=== PATIENT | female | born 1975 | race Caucasian/White ===

== ENCOUNTER 2020-11-14 01:10 | Emergency (ER) | payer OTHER ==
[2020-11-14 02:16] LABS: BASOPHIL 0.5 % (0-2); EOSINOPHIL 0.9 % (0-5); HCT 36.1 % (37.0-47.0); HGB 11.8 g/dl (12.5-16.0); LYMPHOCYTE 37.6 % (15-48); MCH 28.2 pg (25.0-31.0); MCHC 32.7 g/dL (32.0-36.0); MCV 86.4 fL (78.0-100.0); MONOCYTE 9.6 % (0-12); MPV 10.4 fL (6.0-9.5); NEUTROPHIL 51.1 % (41-80); NRBC 0; PLT 285 K/uL (150-400); RBC 4.18 M/uL (4.20-5.40); RDW 13.2 % (11.5-14.0); WBC 9.8 K/uL (4.0-10.5)
[2020-11-14 02:33] LABS: ALBUMIN 3.9 g/dL (3.4-5.0); BILIRUBIN - TOTAL 0.1 mg/dL (0.2-1.0); BUN/CREAT RATIO (CALC) 23.4 RATIO; CREATININE 0.77 mg/dL (0.51-0.95); GLOBULIN (CALCULATION) 3.2 g/dL; POTASSIUM 3.8 mmol/L (3.5-5.1); TOTAL PROTEIN 7.1 g/dL (6.4-8.2)
[2020-11-14 03:05] LABS: BILIRUBIN NEGATIVE (NEGATIVE); BLOOD NEGATIVE Ery/uL (NEGATIVE); CLARITY SLIGHTLY HAZY (CLEAR); COLOR STRAW (YELLOW); GLUCOSE (U) NORMAL (NORMAL); LEUKOCYTES 2+ Leu/uL (NEGATIVE); NITRITE NEGATIVE (NEGATIVE); PROTEIN NEGATIVE (NEGATIVE); UROBILINOGEN 0.2 mg/dL (0.2-1.0)
[2020-11-14 03:12] LABS: BACTERIA TRACE
[2020-11-14] MEDS ORDERED: NORCO 5-325 TA1 EACH PO (03:51)
[2020-11-14] MEDS ORDERED: NAPROXEN500 MG PO (03:51)
[2020-11-14] MEDS ORDERED: AUGMENTIN 500-1 EACH PO (03:51)
== END 2020-11-14 04:10 | disposition home or self-care (01) ==
LOC: FER 01:10
PROVIDERS: Emergency Medicine
DX: N39.0 Urinary tract infection, site not specified (principal); J44.9 Chronic obstructive pulmonary disease, unspecified; F17.210 Nicotine dependence, cigarettes, uncomplicated; Z87.442 Personal history of urinary calculi; Z88.0 Allergy status to penicillin; Z88.8 Allergy status to other drugs, medicaments and biological substances
CPT/HCPCS: 36415; 80053; 81001; 85025; 87088; J1170; J1885; J2405

== ENCOUNTER 2021-09-12 21:35 | Emergency (ER) | payer OTHER ==
[~2021-09-12 21:35] MED LIST: AUGMENTIN 500-1 EACH PO; NAPROXEN500 MG PO; NORCO 5-325 TA1 EACH PO
[2021-09-13] MEDS ORDERED: ULTRAM50 MG PO (00:27)
== END 2021-09-13 00:53 | disposition home or self-care (01) ==
LOC: FER 21:35
DX: S63.502A Unspecified sprain of left wrist, initial encounter (principal); F17.210 Nicotine dependence, cigarettes, uncomplicated; J44.9 Chronic obstructive pulmonary disease, unspecified; Z28.310 Unvaccinated for COVID-19; Z88.0 Allergy status to penicillin; Z88.5 Allergy status to narcotic agent; W19.XXXA Unspecified fall, initial encounter; Y92.009 Unspecified place in unspecified non-institutional (private) residence as the place of occurrence of the external cause
CPT/HCPCS: 73110